=== PATIENT | female | born 1970 | race Caucasian/White ===

== ENCOUNTER 2021-11-27 12:01 | Outpatient (REF) | payer MEDICAID, SELFPAY ==
[2021-11-27 15:03] LABS: FREE T4 1.01 ng/dL (0.76-1.46); TSH 1.23 uIU/mL (0.36-3.74)
== END 2021-11-27 12:02 | disposition home or self-care (01) ==
LOC: NCHCN 12:01
PROVIDERS: Visit Provider Physician Assistant
DX: E04.1 Nontoxic single thyroid nodule (principal)
CPT/HCPCS: 84439; 84443

== ENCOUNTER 2022-07-18 20:20 | Outpatient (REF) | payer MEDICAID, SELFPAY ==
[2022-07-18 19:08] LABS: HCT 45.4 % (36.0-46.0); HGB 14.9 g/dL (11.2-15.7); MCH 28.8 pg (27.0-33.0); MCHC 32.8 % (32.0-36.0); MCV 88 fL (80-95); MPV 10.7 fL (8.0-11.0); Platelet Count 222 10^3/uL (130-400); RBC 5.17 10^6/uL (3.93-5.22); RDW 12.9 % (11.7-14.6); RDW-SD 41.7 fL; WBC 8.15 10^3/uL (4.4-10.8)
== END 2022-07-18 20:21 | disposition home or self-care (01) ==
LOC: NCHCN 20:20
PROVIDERS: Visit Provider Physician Assistant
DX: J18.9 Pneumonia, unspecified organism (principal)
CPT/HCPCS: 85027

== ENCOUNTER → 2024-02-25 00:34 | Outpatient (CLI) | payer MEDICAID, SELFPAY ==
--- NOTE | 2024-02-25 | ETT_ITS ---
APPROVED REPORT Exam: Exercise Treadmill Patient Location: Out-Patient Room/Bed: Stress Nurse: Luci Burns RN, Celine Holcomb RN Ordering Provider:PRANAY NICK, Contact Number: [phone] BMI: 39.31 Baseline Rhythm: Sinus Rhythm Indications: atypical chest pain (usually with stress) Medical History Medical History: back pain, steatosis of liver, DM 2, migraines, hydronephrosis, HLD, HTN Cardiac Medications: atorvastatin, bisoprolol, glimeperide, jardiance, nitro, mounjaro Allergies: codeine, tree nuts, walnuts Cardiac Risk Factors: family hx, diabetes, htn, hld, obesity Previous Cardiac Procedures: none Pretest Chest Pain Characteristics: none Exercise History: Indeterminate Physical Disabilities: none Lung Sounds: clear Heart Sounds: regular Stress Test Details Test: Exercise stress testing was performed using a Steven protocol. Rest Stress HR Resting HR Supine: 72 bpm Max Heart Rate (APMHR): 167 bpm Resting HR Standin bpm Target HR (85% APMHR): 142 bpm Max HR Achieved: 145 bpm % of APMHR: 87 Recovery HR: 83 bpm HR response to stress: Normal HR response to stress BP Resting BP Supine: 128/87 mmHg Resting BP Standin/88 mmHg Max BP: 154/88 mmHg Recovery BP: 124/86 mmHg BP response to stress: Normal blood pressure response to stress. ECG Resting ECG: Sinus Rhythm Ectopy: none Stress ECG: Sinus Tachycardia ST Change: No significant ST segment changes noted Arrhythmia: none Recovery ECG: Sinus Rhythm Recovery ST Change: No significant ST segment changes noted Recovery Arrhythmia: none Clinical Reason for Termination: Target HR Achieved, Fatigue Stress Symptoms: General Fatigue Exercise duration: 06 min26 sec Highest Stage Reached: Stage 3: 3.4 mph at 14% grade. Exercise capacity: 7.71 METs Angina Score: None Melo Treadmill Score: 5.5 Rate Pressure Product: [id number] Stress ECG Conclusion 1. Resting electrocardiogram showed low voltage 2. Patient exercised on the Steven protocol and completed a workload of 7.71 METS 3. Normal heart rate and blood pressure response to exercise. The patient achieved 87% of predicted heart rate for age 4. There was no electrocardiographic evidence of myocardial ischemia 5. There were no significant dysrhythmias Melo Treadmill Score is 5.5 which is Low risk. Stress Test Summary STAGE Time (mins) Speed (mph) Grade (%) HR BP SpO2 SYMPTOMS METS Supine 72 128/87 Standing 78 116/88 1 3 1.7 10 126 138/92 95 4.5 2 6 2.5 12 138 140/94 7 3 9 3.4 14 143 10 1 min recovery 88 154/88 98 3 min recovery 90 128/82 98 6 min recovery 83 124/86 98
== END ==
PROVIDERS: Visit Provider Physician Assistant
DX: R07.89 Other chest pain (principal)
CPT/HCPCS: 93017

== ENCOUNTER 2024-11-07 15:26 | Outpatient (REF) | payer MEDICAID, SELFPAY ==
[2024-11-07 19:41] LABS: COMMENT (LAB VIEW ONLY) 98.53 mg/dL; Microalb ug/mg Crea 6.1 ug/mg Cr
== END 2024-11-07 15:27 | disposition home or self-care (01) ==
LOC: NCHCN 15:26
PROVIDERS: PCP Physician Assistant; Visit Provider Physician Assistant
DX: E11.9 Type 2 diabetes mellitus without complications (principal)
CPT/HCPCS: 82043; 82570

== ENCOUNTER 2025-02-08 12:02 | Outpatient (REF) | payer BC, SELFPAY ==
[2025-02-08 15:55] LABS: ALT 53 U/L (14-59); AST 26 U/L (15-37); Alkaline Phosphatase 117 U/L (46-116); Anion Gap 10.1 mmol/L (3-11); BUN 18 mg/dL (7-18); Bilirubin, Total 0.7 mg/dL (0.2-1.0); CO2 27.9 mmol/L (21.0-32.0); CREATININE 0.8 mg/dL (0.55-1.02); Calcium 9.2 mg/dL (8.5-10.1); Chloride 105 mmol/L (98-107); Glucose 160 mg/dL (74-106); Potassium 4.3 mmol/L (3.5-5.1); Sodium 143 mmol/L (136-145); Total Protein 6.9 g/dL (6.4-8.2)
[2025-02-08 16:22] LABS: Calculated LDL 67 mg/dL (<100); Cholesterol 145 mg/dL (<200); HDL Cholesterol 42 mg/dL (>or=50); Triglyceride 184 mg/dL (<150)
== END 2025-02-08 12:03 | disposition home or self-care (01) ==
LOC: NCHCN 12:02
PROVIDERS: PCP Physician Assistant; Visit Provider Physician Assistant
DX: E11.9 Type 2 diabetes mellitus without complications (principal)
CPT/HCPCS: 80053; 80061; 83036